=== PATIENT | female | born 1960 | race Caucasian/White ===

== ENCOUNTER → 2019-05-17 | Day surgery (SDC) | payer BC ==
[~2019-05-17] MED LIST: ALEVE PO; FAMOTIDINE20 MG PO; FENOFIBRATE145 MG PO; FENTANYL CITRATE/PF 100MCG/2 ML INJ ONE; FISH OIL 1,0001 EAC2 PO; HYOSCYAMINE 0.125 MG TAB ONE; MIDAZOLAM HCL 2 MG/2 ML VIAL ONE; MULTI-VITAMIN1 EACH PO; MULTIVITAMINS1 EAC7 PO; PANTOPRAZOLE SO40 MG PO; PEPCID20 MG PO; PLAQUENIL200 MG PO; PROPOFOL IV EMULSION 10 MG/ML 50 ML VIAL ONE; STOOL SOFTENER PO; TYLENOL PO; ZETIA10 MG PO
--- OUTSIDE RECORDS SUMMARY | 2019-05-17 10:14 | XMS REPORT ---
Author Boy Bansal [facility] eClinicalWorks Address Unknown Phone Unavailable Care Team Providers Care Lining Maker Name Role Phone Boy Yadav CP Unavailable Allergies, Adverse Reactions, Alerts Substance Reaction Event Type Sulfa hives Non Drug Allergy PCN unknown Non Drug Allergy Problems Problem Type Condition Code Onset Dates Condition Status Assessment Osteopenia of multiple sites M85.89 Active Assessment Other assisted (current) drug therapy Z79.899 Active Problem Chronic migraine G43.709 Active Problem Osteopenia of multiple sites M85.89 Active Problem Hyperlipidemia, unspecified E78.5 Active Problem Other specified arthritis, multiple sites M13.89 Active Assessment Other specified arthritis, multiple sites M13.89 Active Problem Pain in right shoulder M25.511 Active Problem Other assisted (current) drug therapy Z79.899 Active Medications Medication Code System Code Instructions Start Date End Date Status Dosage Medrol Dose Maximo [facility] 14445108578 4mg Orally once a day February 15, 2018 February 21, 2018 Active as directed Aleve [facility] 62967301655 220 MG Orally prn Active 1 tablet Fenofibrate ND 06091144089 48 MG Orally Once a day Active 1 tablet Womens One Daily ND 51965353606 Orally qd Active 1 tab Lidoderm ND 57204543553 5 % Externally as directed Active 1 patch to skin remove after 12 hours PredniSONE ND 89265922003 5 MG Orally Once a day Active 1 tablet Ibandronate Sodium ND 25074106983 150 MG Orally once a month Active 1 tablet Pantoprazole Sodium ND 17823509652 40 MG Orally Once a day Active 1 tablet Pepcid ND 14804336906 20 MG Orally Once a day Active 1 tablet at bedtime Plaquenil ND 31370520677 200MG Orally Twice a day Aug 14, 2018 Active 1 tablet [place] 3 ND 11654356571 1000 MG Orally Once a day Active 1 capsule Vital Signs Date/Time: February 15, 2018 BMI 23.95 Index Weight 135.2 lbs Height 63 in Temperature 98.6 F Cardiac Monitoring Heart Rate 68 /min Blood Pressure Diastolic 70 mm Hg Blood Pressure Systolic 124 mm Hg Results No Known Results Summary Purpose eClinicalWorks Submission
--- OUTSIDE RECORDS SUMMARY | 2019-05-17 10:14 | XMS REPORT ---
Author Author Boy Yadav Organization e[employer] Address Unknown Phone Unavailable Care Team Providers Care Register Clerk Name Role Phone Boy Yadav CP Unavailable Allergies, Adverse Reactions, Alerts Substance Reaction Event Type Boniva nausea Non Drug Allergy Sulfa hives Non Drug Allergy PCN unknown Non Drug Allergy Problems Problem Type Condition Code Onset Dates Condition Status Assessment Osteopenia of multiple sites M85.89 Active Assessment Other specified arthritis, multiple sites M13.89 Active Assessment Vitamin D deficiency E55.9 Active Assessment Other custodial (current) drug therapy Z79.899 Active Problem Chronic migraine G43.709 Active Problem Osteopenia of multiple sites M85.89 Active Problem Vitamin D deficiency E55.9 Active Problem Other custodial (current) drug therapy Z79.899 Active Problem Other specified arthritis, multiple sites M13.89 Active Problem Hyperlipidemia, unspecified E78.5 Active Problem Pain in right shoulder M25.511 Active Medications Medication Code System Code Instructions Start Date End Date Status Dosage Fenofibrate ND 13388162143 48 MG Orally Once a day Active 1 tablet [place] 3 ND 09635463149 1000 MG Orally Once a day Active 1 capsule Tramadol HCl ND 41230607049 50 MG Orally q hs March 23, 2019 Active 1 or two tablets as needed Ibandronate Sodium ND 60514597432 150 MG Orally once a month Nov 16, 2018 Active 1 tablet Pepcid [facility] 15562636326 20 MG Orally Once a day Active 1 tablet at bedtime Womens One Daily ND 12286299445 Orally qd Active 1 tab Plaquenil ND 03763155125 200MG Orally Twice a day Active 1 tablet Medrol Dose Maximo ND 34268433993 4mg Orally as directed March 23, 2019 Active as directed Aleve ND 58617788678 220 MG Orally prn Active 1 tablet Pantoprazole Sodium ND 05180183585 40 MG Orally Once a day Active 1 tablet Vital Signs Date/Time: March 23, 2019 BMI 25 Index Weight 142.9 lbs Height 63 in Temperature 98.2 F Cardiac Monitoring Heart Rate 88 /min Blood Pressure Diastolic 82 mm Hg Blood Pressure Systolic 140 mm Hg Results Name Result Date Reference Range Unit Abnormality Flag C-REACTIVE PROTEIN ----C-REACTIVE PROTEIN 0.5 20190323 <0.5 MG/DL CBC W/AUTO DIFF ----PLATELET COUNT 253 20190323 130-400 K/UL ----MCV 85.8 20190323 80.0-100.0 fL ----BASOPHILS 1.7 61352715 0.0-2.0 % ----HEMATOCRIT 36.2 45404540 34.0-45.0 % ----MCHC 33.4 55081944 32.0-35.5 G/DL ----EOSINOPHILS 2.9 88554259 0.0-7.0 % ----MCH 28.7 14795104 27.0-34.0 PG ----MONOCYTES 9.8 29976207 4.0-13.0 % ----WBC 4.8 20190323 4.0-11.0 K/UL ----HEMOGLOBIN 12.1 20190323 11.5-15.5 G/DL ----RBC 4.22 64627325 3.80-5.10 M/UL ----LYMPHOCYTES 19.0 20190323 19.0-48.0 % ----RDW 12.4 68485920 11.0-15.0 % ----NEUTROPHILS 66.6 20190323 40.0-74.0 % VITAMIN D, 25 OH ----VITAMIN D, 25 OH 32 20190323 SEE BELOW NG/ML SEDIMENTATION RATE ----SEDIMENTATION RATE 6 20190323 0-20 MM/HOUR COMPREHENSIVE METABOLIC PANEL ----POTASSIUM 4.3 20190323 3.5-5.4 MEQ/L ----SODIUM 140 20190323 133-146 MEQ/L ----CALC BUN/CREAT 18 20190323 6-28 RATIO ---- eGFR NON- AMER. 58 20190323 >60 ML/MIN/1.73 L ---- eGFR AMER. 68 20190323 >60 ML/MIN/1.73 ----CREATININE 1.05 20190323 0.60-1.30 MG/DL ----BUN 19 20190323 6-20 MG/DL ----GLUCOSE 108 20190323 70-99 MG/DL H ----AST 46 20190323 9-40 U/L H ----CALC GLOBULIN 2.5 20190323 1.9-3.7 G/DL ----ALT 16 20190323 5-40 U/L ----CALC A/G RATIO 1.9 20190323 1.0-2.6 RATIO ----BILIRUBIN, TOTAL 0.4 20190323 <=1.2 MG/DL ----ALKALINE PHOSPHATASE 43 20190323 40-136 U/L ----CARBON DIOXIDE 25 20190323 19-31 MEQ/L ----CALCIUM 10.6 20190323 8.5-10.5 MG/DL H ----PROTEIN, TOTAL 7.2 20190323 6.1-8.3 G/DL ----ALBUMIN 4.7 20190323 3.5-5.2 G/DL ----CHLORIDE 101 20190323 95-107 MEQ/L Summary Purpose eClinicalWorks Submission
--- OUTSIDE RECORDS SUMMARY | 2019-05-17 10:14 | XMS REPORT | Continuity of Care Document ---
Author Author Arieso Address Unknown Phone Unavailable Care Team Providers Care Learning And Development Associate Name Role Phone [employer] Unavailable Unavailable Problems Problem Status Onset Date Classification Date Reported Comments Source Chronic migraine Active Problem 04/10/2019 Jah Yadav Osteopenia of multiple sites Active Diagnosis 04/10/2019 Jah Yadav Hyperlipidemia, unspecified Active Problem 04/10/2019 Jah Yadav Other specified arthritis, multiple sites Active Diagnosis 04/10/2019 Jah Yadav Pain in right shoulder Active Problem 04/10/2019 Jah Yadav Other fpc drug therapy Active Diagnosis 04/10/2019 Jah Yadav Impaired fasting glucose Active Diagnosis 08/25/2017 Jah Yadav Vitamin D deficiency Active Diagnosis 04/10/2019 Jah Yadav Medications Medication Details Route Status Patient Instructions Ordering Provider Order Date Source Tramadol HCl 1 or two tablets as needed Orally Active 50 MG Orally q hs [place] 03/23/2019 Jah Yadav Medrol Dose Maximo as directed Orally Active 4mg Orally as directed [place] 03/23/2019 Jah Yadav Plaquenil 1 tablet Orally Active 200MG Orally Twice a day [place] 12/18/2018 Jah Yadav Ibandronate Sodium 1 tablet Orally Active 150 MG Orally once a month [place] 11/16/2018 Jah Yadav Plaquenil 1 tablet Orally Active 200MG Orally Twice a day [place] 08/14/2018 Jah Yadav Medrol Dose Maximo as directed Orally Active 4mg Orally as directed [place] 06/21/2018 Jah Yadav PredniSONE 1 tablet Orally Active 5 MG Orally Once a day [place] 02/15/2018 Jah Yadav Medrol Dose Maximo as directed Orally Active 4mg Orally once a day [place] 02/15/2018 Jah Yadav Ibandronate Sodium 1 tablet Orally Active 150 MG Orally once a month [place] 08/19/2017 Jah Yadav Ibandronate Sodium 1 tablet Orally Active 150 MG Orally once a month [place] Jah Yadav [place] 3 1 capsule Orally Active 1000 MG Orally Once a day [place] Yadav Womens One Daily 1 tab Orally Active Orally qd [place] Yadav Plaquenil 1 tablet Orally Active 200MG Orally Twice a day [place] Yadav Fenofibrate 1 tablet Orally Active 48 MG Orally Once a day [place] Yadav Aleve 1 tablet Orally Active 220 MG Orally prn [place] Yadav Pepcid 1 tablet at bedtime Orally Active 20 MG Orally Once a day Yadav Jah Yadav Pepcid 1 tablet at bedtime Orally Active 20 MG Orally Once a day [place] Yadav Womens One Daily 1 tab Orally Active Orally qd [place] Yadav Fenofibrate 1 tablet Orally Active 48 MG Orally Once a day [place] Yadav [place] 3 1 capsule Orally Active 1000 MG Orally Once a day [place] Yadav Aleve 1 tablet Orally Active 220 MG Orally prn [place] Yadav Pantoprazole Sodium 1 tablet Orally Active 40 MG Orally Once a day [place] Yadav Lidoderm 1 patch to skin remove after 12 hours Externally Active 5 % Externally as directed [place] Yadav PredniSONE 1 tablet Orally Active 5 MG Orally Once a day Yadav Jahwhit Yadav Allergies, Adverse Reactions, Alerts Substance Category Reaction Severity Reaction type Status Date Reported Comments Source PCN Adverse Reaction unknown Adverse Reaction Active 03/23/2019 Jah Yadav Sulfa Adverse Reaction hives Adverse Reaction Active 03/23/2019 Jah Yadav Boniva Adverse Reaction nausea Adverse Reaction Active 03/23/2019 Jah Yadav Immunizations No Data Provided for This Section Results No Data Provided for This Section Pathology Reports No Data Provided for This Section Diagnostic Reports No Data Provided for This Section Consultation Notes No Data Provided for This Section Discharge Summaries No Data Provided for This Section History and Physicals No Data Provided for This Section Vital Signs Vital Sign Value Date Comments Source Weight 142.9 03/23/2019 Jah Yadav Height 63 03/23/2019 Jah Yadav Temperature Oral (F) 98.2 F 03/23/2019 Jah Yadav Heart Rate 88 03/23/2019 Jah Yadav Diastolic (mm Hg) 82 03/23/2019 Jah Yadav Systolic (mm Hg) 140 03/23/2019 Jah Yadav Weight 137.4 06/21/2018 Jah Yadav Height 63 06/21/2018 Jah Yadav Temperature Oral (F) 97.7 F 06/21/2018 Jah Yadav Heart Rate 70 06/21/2018 Jah Yadav Diastolic (mm Hg) 70 06/21/2018 Jah Yadav Systolic (mm Hg) 128 06/21/2018 Jah Yadav Weight 135.2 02/15/2018 Jah Yadav Height 63 02/15/2018 Jah Yadav Temperature Oral (F) 98.6 F 02/15/2018 Jah Yadav Heart Rate 68 02/15/2018 Jah Yadav Diastolic (mm Hg) 70 02/15/2018 Jah Yadav Systolic (mm Hg) 124 02/15/2018 Jah Yadav Weight 133 08/19/2017 Jah Yadav Height 62 08/19/2017 Jah Yadav Temperature Oral (F) 98.6 F 08/19/2017 Jah Yadav Heart Rate 64 08/19/2017 Jah Yadav Diastolic (mm Hg) 62 08/19/2017 Jah Yadav Systolic (mm Hg) 108 08/19/2017 Jah Yadav Encounters No Data Provided for This Section Procedures No Data Provided for This Section Assessment and Plan No Data Provided for This Section Plan of Care No Data Provided for This Section Social History No Data Provided for This Section Family History No Data Provided for This Section Advance Directives No Data Provided for This Section Functional Status No Data Provided for This Section
--- OUTSIDE RECORDS SUMMARY | 2019-05-17 10:14 | XMS REPORT ---
Author Boy Bansal [facility] eClinicalWorks Address Unknown Phone Unavailable Care Team Providers Care Safety Associate Name Role Phone Boy Yadav CP Unavailable Allergies, Adverse Reactions, Alerts Substance Reaction Event Type PCN unknown Non Drug Allergy Sulfa hives Non Drug Allergy Problems Problem Type Condition Code Onset Dates Condition Status Assessment Other group home (current) drug therapy Z79.899 Active Assessment Other specified arthritis, multiple sites M13.89 Active Assessment Hyperlipidemia, unspecified E78.5 Active Assessment Impaired fasting glucose R73.01 Active Assessment Chronic migraine G43.709 Active Problem Hyperlipidemia, unspecified E78.5 Active Problem Chronic migraine G43.709 Active Problem Osteopenia of multiple sites M85.89 Active Problem Other group home (current) drug therapy Z79.899 Active Assessment Osteopenia of multiple sites M85.89 Active Problem Pain in right shoulder M25.511 Active Problem Other specified arthritis, multiple sites M13.89 Active Medications Medication Code System Code Instructions Start Date End Date Status Dosage [place] 3 [facility] [address] 1000 MG Orally Once a day Active 1 capsule Ibandronate Sodium [facility] [address]-06 150 MG Orally once a month Aug 19, 2017 February 15, 2018 Active 1 tablet Womens One Daily [facility] [address]-79 Orally qd Active 1 tab Plaquenil [facility] 17282871331 200MG Once a day Active 1 tablet Fenofibrate [facility] [address]-96 48 MG Orally Once a day Active 1 tablet Aleve [facility] 54187-[address]10 220 MG Orally prn Active 1 tablet PredniSONE [facility] [address]-25 5 MG Orally Once a day February 15, 2018 Active 1 tablet Pepcid [facility] [address]-74 20 MG Orally Once a day Active 1 tablet at bedtime Vital Signs Date/Time: Aug 19, 2017 BMI 24.32 Index Weight 133 lbs Height 62 in Temperature 98.6 F Cardiac Monitoring Heart Rate 64 /min Blood Pressure Diastolic 62 mm Hg Blood Pressure Systolic 108 mm Hg Results No Known Results Summary Purpose eClinicalWorks Submission
--- OUTSIDE RECORDS SUMMARY | 2019-05-17 10:14 | XMS REPORT ---
Author Author Ignacia Monreal [facility] eClinicalWorks Address Unknown Phone Unavailable Care Team Providers Care Part Time Receptionist Name Role Phone Ignacia Monreal CP Unavailable Allergies No Known Allergies Problems Problem Type Condition Code Onset Dates Condition Status Problem Chronic migraine G43.709 Active Problem Osteopenia of multiple sites M85.89 Active Problem Hyperlipidemia, unspecified E78.5 Active Problem Other specified arthritis, multiple sites M13.89 Active Problem Pain in right shoulder M25.511 Active Problem Other correction (current) drug therapy Z79.899 Active Medications Medication Code System Code Instructions Start Date End Date Status Dosage Ibandronate Sodium [facility] 91916108809 150 MG Orally once a month Active 1 tablet Results No Known Results Summary Purpose eClinicalWorks Submission
--- OUTSIDE RECORDS SUMMARY | 2019-05-17 10:15 | XMS REPORT ---
Author Boy Bansal Organization eClinicalWorks Address Unknown Phone Unavailable Care Team Providers Care Apple Peeler Operator Name Role Phone Boy Yadav CP Unavailable Allergies, Adverse Reactions, Alerts Substance Reaction Event Type Sulfa hives Non Drug Allergy PCN unknown Non Drug Allergy Problems Problem Type Condition Code Onset Dates Condition Status Assessment Osteopenia of multiple sites M85.89 Active Assessment Other manager terminal (current) drug therapy Z79.899 Active Problem Chronic migraine G43.709 Active Problem Osteopenia of multiple sites M85.89 Active Problem Hyperlipidemia, unspecified E78.5 Active Problem Other specified arthritis, multiple sites M13.89 Active Assessment Other specified arthritis, multiple sites M13.89 Active Problem Pain in right shoulder M25.511 Active Problem Other skilled nursing (current) drug therapy Z79.899 Active Medications Medication Code System Code Instructions Start Date End Date Status Dosage Pepcid [facility] 04214882558 20 MG Orally Once a day Active 1 tablet at bedtime Ibandronate Sodium [facility] 17837878678 150 MG Orally once a month Active 1 tablet Medrol Dose Maximo ND 35722422319 4mg Orally as directed Jun 21, 2018 Jul 03, 2018 Active as directed Womens One Daily ND 33741562654 Orally qd Active 1 tab Fenofibrate ND 40461934244 48 MG Orally Once a day Active 1 tablet [place] 3 ND 52675878007 1000 MG Orally Once a day Active 1 capsule Plaquenil ND 12063669174 200MG Orally Twice a day Dec 18, 2018 Active 1 tablet Aleve ND 14190689486 220 MG Orally prn Active 1 tablet Pantoprazole Sodium ND 93905731433 40 MG Orally Once a day Active 1 tablet Vital Signs Date/Time: Jun 21, 2018 BMI 24.34 Index Weight 137.4 lbs Height 63 in Temperature 97.7 F Cardiac Monitoring Heart Rate 70 /min Blood Pressure Diastolic 70 mm Hg Blood Pressure Systolic 128 mm Hg Results No Known Results Summary Purpose eClinicalWorks Submission
--- OUTSIDE RECORDS SUMMARY | 2019-05-17 10:15 | XMS REPORT | Continuity of Care Document ---
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 Medications No medication information available. Social History No social history. Hospital Discharge Instructions No hospital discharge instructions. Plan of Care Discharge Date 04/28/19 Disposition HOME/SELF CARE Prescriptions See Medications Section Functional Status No functional status results. Allergies, Adverse Reactions, Alerts No allergy information available. Immunizations No Known History of Immunizations. Vital Signs No Known Vital Signs Results. Results Laboratory Results Test Name Result Units Flags Reference Collection Date/Time Result Date/Time Comments Troponin I 0.04 ng/mL H 0.00-0.03 04/27/19 10:50pm 04/27/19 11:19pm Troponin I-Interpretation Reference : <0.03 ng/mL NEGATIVE 0.04 - 0.49 ng/mL EQUIVOCAL =OR > 0.5 ng/mL CONSISTENT WITH ACUTE MYOCARDIAL INJURY 98% of confirmed AMI patients will have at least one value in a set or serial specimens >0.50 ng/ml. 99% of normals are between 0.0 - 0.10 ng/ml. Serial samples on a patient that are all <0.10 ng/ml effectively rules out AMI. Persistently increased troponin I values that are above the upper limit of normal but below the threshold for AMI indicate mycardial injury but not necessarily an ischemic mechanism of injury. Troponin Important Points 1. Troponin is specific for myocardial injury but not for AMI. Elevated troponin levels above the upper limit of normal but below the AMI cutoff may be present in cardiac injury other then AMI and represent some degree of risk. 2. Elevated troponin levels inconsistent with patient history or clinical condition should be considered a sign to investigate for other cardiac conditions. 3. Serial sampling is critical for accurate diagnosis. White Blood Count 5.2 K/uL 4.8-10.8 04/27/19 8:11pm 04/27/19 8:19pm Red Blood Count 4.55 M/uL L 4.70-6.00 04/27/19 8:11pm 04/27/19 8:19pm Hemoglobin 13.2 g/dL L 13.5-17.5 04/27/19 8:1104/27/19 8:19pm Hematocrit 39.3 % L 42.0-52.0 04/27/19 8:1104/27/19 8:19pm Mean Corpuscular Volume 86.4 fl 80.0-100.0 04/27/19 8:1104/27/19 8:19pm Mean Corpuscular Hemoglobin 28.9 pg 27.0-31.0 04/27/19 8:1104/27/19 8:19pm Mean Corpuscular Hgb Concent Diff 33.5 g/dL 32.0-36.0 04/27/19 8:11pm 04/27/19 8:19pm Red Cell Distribution Width 13.1 % 11.5-14.5 04/27/19 8:1104/27/19 8:19pm Platelet Count 274 K/uL 130-400 04/27/19 8:11pm 04/27/19 8:19pm Mean Platelet Volume 8.6 fl 7.4-10.4 04/27/19 8:1104/27/19 8:19pm Granulocytes (%) 77.1 % H 50.0-75.0 04/27/19 8:1104/27/19 8:19pm Lymphocytes % 13.4 % L 20.0-40.0 04/27/19 8:1104/27/19 8:19pm Monocytes % 7.8 % 0.0-15.0 04/27/19 8:1104/27/19 8:19pm Eosinophils % 0.9 % 0.0-10.0 04/27/19 8:11pm 04/27/19 8:19pm Basophils % 0.8 % 0.0-2.0 04/27/19 8:11pm 04/27/19 8:19pm Granulocytes # 4.0 K/uL 1.8-6.4 04/27/19 8:11pm 04/27/19 8:19pm Lymphocytes # 0.7 K/uL L 1.2-3.6 04/27/19 8:11pm 04/27/19 8:19pm Monocytes # 0.4 K/uL 0.3-0.9 04/27/19 8:11pm 04/27/19 8:19pm Eosinophils # 0.0 K/UL 0.0-0.5 04/27/19 8:11pm 04/27/19 8:19pm Basophils # 0.0 K/UL 0.0-0.2 04/27/19 8:11pm 04/27/19 8:19pm Manual Differential NO 04/27/19 8:11pm 04/27/19 8:19pm Prothrombin Time 11.4 SECONDS 10.0-12.9 04/27/19 8:11pm 04/27/19 8:27pm INR International Normalized Ratio 1.0 0.91-1.15 04/27/19 8:11pm 04/27/19 8:27pm THE INR IS TO BE USED ONLY FOR MONITORING ORAL ANTICOAGULANT THERAPY. INDICATION INR VALUE 1. Prophylaxis of venous thrombosis 2.0-3.0 (high-risk surgery) Treatment of venous thrombosis Treatment of PE Prevention of systemic embolism Tissue heart valves AMI (to prevent systemic embolism) Valvular heart disease Atrial fibrillation Bileaflet mechanical valve in aortic position 2. Mechanical prosthetic heart valves (high risk) 2.5-3.5 Thrombosis and Antiphospholipid syndrome Prevention of recurrent VT Sixth ACCP Consensus Conference on Antithrombotic Therapy, Chest 2001; 119:Supplement 8-21. Activated Partial Thromboplast Time 26.3 SECONDS 25.1-36.5 04/27/19 8:11pm 04/27/19 8:27pm Sodium Level 135 mmol/L 135-144 04/27/19 8:11pm 04/27/19 8:28pm Potassium Level 3.8 mmol/L 3.5-5.1 04/27/19 8:11pm 04/27/19 8:28pm Chloride Level 102 mmol/L 101-111 04/27/19 8:11pm 04/27/19 8:28pm Carbon Dioxide Level 21 mmol/L L 22-32 04/27/19 8:11pm 04/27/19 8:28pm Anion Gap 15.8 mmol/L 10-20 04/27/19 8:11pm 04/27/19 8:28pm Glucose Level 114 mg/dL H 65-99 04/27/19 8:11pm 04/27/19 8:28pm Prediabetes 100 to 125 mg/dl Diabetes 126 mg/dl or higher Prediabetes refers to individuals with plasma glucose levels intermediate between those considered normal and those considered diabetic and is also referred to as impaired glucose tolerance (IGT) or impaired fasting glucose (IFG). Blood Urea Nitrogen 16 mg/dL 8-04/27/19 8:11pm 04/27/19 8:36pm Creatinine 0.7 mg/dL 0.61-1.24 04/27/19 8:11pm 04/27/19 8:36pm EGFR Note 117.9 59.3-175.8 04/27/19 8:11pm 04/27/19 8:36pm eGFR (Estimated Glomerular Filtration Rate) eGFR calculation value obtained using the [facility] Quadratic (MCQ) equation. The reportable reference range is recommended to be greater than 60 ml/min/1.73m. This is an estimation of the patient's GFR and clinical correlation is recommended. This eGFR calculation does not account for race. This result may differ from other equations available. Calcium Level 9.3 mg/dL 8.9-10.3 04/27/19 8:11pm 04/27/19 8:28pm Albumin 4.6 g/dL 3.5-5.0 04/27/19 8:11pm 04/27/19 8:36pm Total Bilirubin 0.7 mg/dL 0.2-1.2 04/27/19 8:11pm 04/27/19 8:36pm Alkaline Phosphatase 43 IU/L 32-91 04/27/19 8:11pm 04/27/19 8:36pm Total Protein 8.1 g/dL 6.5-8.1 04/27/19 8:11pm 04/27/19 8:36pm Alanine Aminotransferase (ALT/SGPT) 43 IU/L 7-55 04/27/19 8:11pm 04/27/19 8:36pm Aspartate Amino Transf (AST/SGOT) 97 IU/L H 15-41 04/27/19 8:11pm 04/27/19 8:36pm Globulin 3.5 g/dL 2.3-3.5 04/27/19 8:11pm 04/27/19 8:36pm Albumin/Globulin Ratio 1.3 1.2-2.2 04/27/19 8:11pm 04/27/19 8:36pm Lipase 30 U/L 22-51 04/27/19 8:11pm 04/27/19 8:36pm Creatine Kinase 74 IU/L 49-397 04/27/19 8:11pm 04/27/19 8:46pm Creatine Kinase MB 1.31 ng/ML 0.6-6.3 04/27/19 8:11pm 04/27/19 8:57pm Myoglobin 25 ug/mL 17.4-106.0 04/27/19 8:11pm 04/27/19 8:56pm Urine Color YELLOW YELLOW 04/27/19 7:29pm 04/27/19 7:47pm Urine Appearance HAZY A CLEAR 04/27/19 7:29pm 04/27/19 7:47pm Urine Glucose NEGATIVE mg/dL NEGATIVE 04/27/19 7:29pm 04/27/19 7:47pm Urine Bilirubin SMALL A NEGATIVE 04/27/19 7:29pm 04/27/19 7:47pm Urine Ketones TRACE A NEGATIVE 04/27/19 7:29pm 04/27/19 7:47pm Urine Specific Ov[place] >=1.030 1.002-1.030 04/27/19 7:29pm 04/27/19 7:47pm Urine Blood NEGATIVE NEGATIVE 04/27/19 7:29pm 04/27/19 7:47pm Urine pH 6.0 4.5-8.0 04/27/19 7:29pm 04/27/19 7:47pm Urine Protein 30 mg/dL A NEGATIVE 04/27/19 7:29pm 04/27/19 7:47pm Urine Urobilinogen 1.0 E.U./dL 0.2 04/27/19 7:29pm 04/27/19 7:47pm Urine Nitrite NEGATIVE NEGATIVE 04/27/19 7:29pm 04/27/19 7:47pm Urine Leukocyte Esterase SMALL A NEGATIVE 04/27/19 7:29pm 04/27/19 7:47pm Urine Microscopic Indicated YES NO 04/27/19 7:29pm 04/27/19 7:47pm Urine RBC NONE SEEN /hpf 0-2 04/27/19 7:29pm 04/27/19 7:54pm Urine WBC 15-30 /hpf A 0-2 04/27/19 7:29pm 04/27/19 7:54pm "Urine Culture test was reflexed and added to this specimen" Urine Epithelial Cells 6-14 /hpf A 0-2 04/27/19 7:29pm 04/27/19 7:54pm Urine Bacteria FEW /hpf NEG 04/27/19 7:29pm 04/27/19 7:54pm Urine Mucus 1+ /lpf A NEG 04/27/19 7:29pm 04/27/19 7:54pm Procedures Procedure Status Date Provider(s) ROUTINE URINALYSIS Completed 04/27/19 ANABEL CHAO MD URINE CULTURE Active 04/27/19 ANABEL CHAO MD CBCA W/PLT & AUTO DIFFERENTIAL Completed 04/27/19 Avery Cristobal NURSE EXTERN-C COMPREHENSIVE METABOLIC PANEL Completed 04/27/19 Avery CristobalP-C PROTIME Completed 04/27/19 Avery CristobalP-C PTT Completed 04/27/19 Avery CristobalP-C LIPASE Completed 04/27/19 Avery Cristobal NURSE EXTERN-C CARDIAC MARKERS PANEL (ER) Completed 04/27/19 Nick Alvarez TROPONIN I Completed 04/27/19 Nick Alvarez CHEST 1 VIEW (AP) Active 04/27/19 Antonio,Nick ABDOMEN 2 VIEWS Active 04/27/19 Nick Alvarez Encounters Encounter Location Arrival/Admit Date Discharge/Depart Date Attending Provider Departed Emergency [facility] 04/27/19 7:02pm 04/28/19 0:11am ANABEL CHAO MD
--- OUTSIDE RECORDS SUMMARY | 2019-05-17 10:15 | XMS REPORT ---
Author Author [facility] Address Unknown Phone Unavailable Care Team Providers Care Clay Miner Name Role Phone Unavailable Unavailable Problems This patient has no known problems. Allergies, Adverse Reactions, Alerts This patient has no known allergies or adverse reactions. Medications This patient has no known medications.
[2019-05-17 14:15] VITALS: BP 130/74
--- NOTE | 2019-05-17 19:03 | Operative Report ---
DATE OF PROCEDURE: 05/17/2019 SURGEON: Codey Brownlee MD PROCEDURE: Esophagogastroduodenoscopy with biopsies. INDICATION FOR EGD: Acid reflux. MEDICATIONS: The patient was done under MAC, please see anesthesiologist's note. PROCEDURE IN DETAIL: With the patient in left lateral decubitus position, a flexible fiberoptic Olympus gastroscope was introduced into the esophagus under direct visualization without any difficulty. There was some patchy erythema noted in the distal esophagus. A tongue of velvety red mucosa was noted to extend proximally from the GE junction, biopsies were obtained to rule out Lopez's. The scope was then advanced with ease into the stomach traversing a small sliding hiatal hernia. Mucosa overlying the antrum and the body revealed some patchy erythema and low-grade edema and biopsies were obtained and sent to stain for H pylori. There was also scattered hyperplastic appearing polyps in the body compatible with fundic polyps. Some were partially excised with cold biopsy forceps. The pylorus was of normal contour and shape, it was intubated with ease and the scope was advanced all the way to the second portion of the duodenum. It was then withdrawn slowly. Mucosa overlying the proximal second portion and the duodenal bulb appeared to be within normal limits. The scope was then withdrawn back into the stomach and retroflexed. Mucosa overlying the fundus and the cardia appeared to be within normal limits. The scope was then straightened out, it was subsequently withdrawn. The patient tolerated the procedure well. IMPRESSION: 1. Mild distal esophagitis. 2. Rule out Lopez's esophagus. 3. Small sliding hiatal hernia. 4. Gastritis, biopsied, biopsies sent to stain for Helicobacter pylori. 5. Gastric polyps, hyperplastic appearing, body, some partially were excised with the cold biopsy forceps. PLAN: Follow up histology. Continue Protonix 40 mg one p.o. q.a.m. a.c. and Pepcid 40 mg one p.o. at bedtime. Codey Brownlee [place] [facility] [place][id number] cc: Sanju Bales MD
== END | disposition home or self-care (01) ==
LOC: OR 10:10
PROVIDERS: ATTEND Internal Medicine Gastroenterology
DX: K29.50 Unspecified chronic gastritis without bleeding (principal); K31.7 Polyp of stomach and duodenum; K22.70 Barrett's esophagus without dysplasia; K21.0 Gastro-esophageal reflux disease with esophagitis; K57.90 Diverticulosis of intestine, part unspecified, without perforation or abscess without bleeding; K44.9 Diaphragmatic hernia without obstruction or gangrene; K59.00 Constipation, unspecified; M06.9 Rheumatoid arthritis, unspecified; M26.609 Unspecified temporomandibular joint disorder, unspecified side; E78.00 Pure hypercholesterolemia, unspecified; Z88.0 Allergy status to penicillin; Z01.810 Encounter for preprocedural cardiovascular examination
CPT/HCPCS: 43239; 93005; J2250; J2704; J3010

== ENCOUNTER → 2021-04-16 | Day surgery (SDC) | payer BC ==
[~2021-04-16] MED LIST changes: -HYOSCYAMINE 0.125 MG TAB ONE; +HYOSCYAMINE SULFATE 0.5 MG/ML INJ ONE; +LIDOCAINE HCL 2% LOCAL INJ 5 ML SDV VIAL INJ ONE; +PROPOFOL IV EMULSION 10 MG/ML 20 ML VIAL ONE; -PROPOFOL IV EMULSION 10 MG/ML 50 ML VIAL ONE
[2021-04-16 10:25] VITALS: BP 135/85
== END | disposition home or self-care (01) ==
LOC: OR 06:01
PROVIDERS: ATTEND Internal Medicine Gastroenterology
DX: Z12.11 Encounter for screening for malignant neoplasm of colon (principal); K62.1 Rectal polyp; K31.7 Polyp of stomach and duodenum; K29.70 Gastritis, unspecified, without bleeding; K20.90 Esophagitis, unspecified without bleeding; K22.70 Barrett's esophagus without dysplasia; K44.9 Diaphragmatic hernia without obstruction or gangrene; K21.9 Gastro-esophageal reflux disease without esophagitis; K57.30 Diverticulosis of large intestine without perforation or abscess without bleeding; K64.8 Other hemorrhoids; E78.00 Pure hypercholesterolemia, unspecified; Z88.0 Allergy status to penicillin; Z01.810 Encounter for preprocedural cardiovascular examination; Z01.812 Encounter for preprocedural laboratory examination; Z68.27 Body mass index [BMI] 27.0-27.9, adult; Z80.0 Family history of malignant neoplasm of digestive organs
CPT/HCPCS: 43239; 43450; 45384; 93005; J1980; J2001; J2250; J2704; J3010; U0002; 45378